=== PATIENT | female | born 1970 | race Caucasian/White ===

== ENCOUNTER 2022-11-06 01:10 | Day surgery (SDC) | payer OTHER, SELFPAY ==
[2022-11-04 11:12] VITALS: BMI 20.9
--- NOTE | 2022-11-05 16:44 | PM.HPGS ---
History of Present Illness History of Present Illness Consent: Risks, benefits, and alternatives have been discussed and questions answered. Patient agrees to proceed with procedure. Chief complaint: family hx colon ca, family hx colon polyps Narrative: Sailaja Stevens is a 51 year old female Referred for colon cancer screening. She does have a family history of colon cancer. Her father had colon cancer. Review of Systems Review of Systems: All systems reviewed & are unremarkable except as noted in HPI and below PMFSH Social History Social History Smoking status: Never smoker Alcohol intake: current Drinks per week: 4 Alcohol use details: WEEKENDS Substance use: never Substance use type: does not use Living arrangements: with family Spiritual care concerns: No Meds Home Medications and Allergies Home Medications Medication Instructions Recorded Confirmed Type Calcium with Vitamin D 1 tab-cap PO DAILY 11/04/22 11/06/22 History Collagen Skin Renewal 1 tab-cap PO DAILY 11/04/22 11/06/22 History biotin 10,000 mcg capsule 10,000 mcg PO DAILY 11/04/22 11/06/22 History cholecalciferol (vitamin D3) 125 125 mcg PO DAILY 11/04/22 11/06/22 History mcg (5,000 unit) tablet (Vitamin D3) [id number]-minerals 1 tablet PO DAILY 11/04/22 11/06/22 History Allergies Allergy/AdvReac Type Severity Reaction Status Date / Time No Known Allergies Allergy Verified 11/06/22 07:00 Exam Const: General: alert Orientation/consciousness: patient oriented x3 Resp: Auscultation: clear to auscultation bilaterally Cardio: Rhythm: regular rhythm GI: GI Palp: Yes Soft to palpation and No Tenderness to palpation present (GI) Neuro: General: patient oriented x3 Assessment and Plan Assessment and plan (1) Colon cancer screening: Code(s): Z12.11 - Encounter for screening for malignant neoplasm of colon Status: Acute Assessment and Plan: Colonoscopy with possible biopsy or polypectomy or cautery or injection of substances.
[2022-11-06 07:01] VITALS: BP 80/48; PULSE 52; RESP 17; TEMP 36.1; O2SAT 98
[2022-11-06] MEDS: LACTATED RINGERS 1,000 ML 150 ML IV CONT ×2 (07:03→07:53)
--- NOTE | 2022-11-06 07:07 | SUR.PREOP ---
Patient reports feeling faint and almost passing out early this morning. Patient denies falling or hitting her head. States she just feels weak . Dr. Houser has been notified. Bp was 80/48 at time of arrival to GI lab. this was reported to JORGE Brandon and will be reported to Dr. Hodges once he arrives to GI. Fluids are running.
[2022-11-06 07:30] VITALS: BP 89/44
--- NOTE | 2022-11-06 07:36 | P.PNAN_ITS ---
Anes - Initial Pre Proc Eval Procedure: Operation Date: 11/06/22 08:00 Proposed Procedures p Screening Colonoscopy - Marco Houser MD Date/Time: 11/06/22 07:36 Surgeon: Marco Houser MD Pre Op Diagnosis: family hx colon ca, family hx colon polyps Patient Data Age: 51 Gender: F Height: 1.63 m Weight: 53 kg Last Vital Signs Temp 97 F L 11/06/22 07:01 Pulse 52 L 11/06/22 07:01 Resp 17 11/06/22 07:01 BP 80/48 L 11/06/22 07:01 Pulse Ox 98 11/06/22 07:01 O2 Del Method Room Air 11/06/22 07:01 Allergies Allergy/AdvReac Type Severity Reaction Status Date / Time No Known Allergies Allergy Verified 11/06/22 07:00 Home Medications Medication Instructions Recorded Confirmed Type Calcium with Vitamin D 1 tab-cap PO DAILY 11/04/22 11/06/22 History Collagen Skin Renewal 1 tab-cap PO DAILY 11/04/22 11/06/22 History biotin 10,000 mcg capsule 10,000 mcg PO DAILY 11/04/22 11/06/22 History cholecalciferol (vitamin D3) 125 125 mcg PO DAILY 11/04/22 11/06/22 History mcg (5,000 unit) tablet (Vitamin D3) [id number]-minerals 1 tablet PO DAILY 11/04/22 11/06/22 History Patient hx anesthesia problems: none Family hx anesthesia problems: none Results Review: All pre-operative results and documents have been reviewed as part of the pre- operative evaluation. [facility] Social History Social History Smoking status: Never smoker Alcohol intake: current Drinks per week: 4 Alcohol use details: WEEKENDS Substance use: never Substance use type: does not use Living arrangements: with family Spiritual care concerns: No Anes - Eval Final PreProcedure Day of Procedure 11/06/22 07:36 Patient weight: normal Heart: regular rate and rhythm Lungs: clear to auscultation Airway: Mallampati scale class II Neurological: alert and oriented Last oral intake: >/= 8 hours ASA classification: II Emergent: no Anesthetic plan: proceed Anesthesia type and monitoring: general GIVS and standard monitoring Results Review: All pre-operative results and documents have been reviewed as part of the pre- operative evaluation. Informed Consent: The patient's anesthetic plan and its attendant risks and benefits were discussed with the patient/family/POA. Questions were solicited and answers provided to the satisfaction of the patient/family/POA.
[2022-11-06 08:09] VITALS: BP 90/53; PULSE 70; RESP 17; O2SAT 100
[2022-11-06 08:19] VITALS: BP 98/62; PULSE 69; RESP 20; O2SAT 100
[2022-11-06 08:29] VITALS: BP 99/70; PULSE 75; RESP 20; O2SAT 100
== END 2022-11-06 08:40 | disposition home or self-care (01) ==
PROVIDERS: Visit Provider Internal Medicine Gastroenterology
PROC: 0DJD8ZZ Inspection of Lower Intestinal Tract, Via Natural or Artificial Opening Endoscopic (ICD-10-PCS; CPT 45378; principal; 2022-11-06 08:00)
DX: Z12.11 Encounter for screening for malignant neoplasm of colon (principal); K62.1 Rectal polyp; Z80.0 Family history of malignant neoplasm of digestive organs; Z83.71 Family history of colonic polyps
CPT/HCPCS: 45380; 88305; J2704; J7120